=== PATIENT | male | born 1950 | race Caucasian/White ===

== ENCOUNTER 2017-10-14 09:29 | Inpatient (IN) | payer OTHER ==
[2017-10-14] MEDS: IBUPROFEN 600 MG TAB PO (10:38)
[2017-10-14] MEDS: METHYLPREDNISOLONE 125 MG INJ IV ×2 (10:38→21:34)
[2017-10-14] MEDS: SODIUM CHLORIDE 0.9% 1L BAG IV* (10:39)
[2017-10-14] MEDS: LEVOFLOXACIN 750MG/D5W (PMX) 150 ML IVPB (10:45)
[2017-10-14] MEDS: ALBUTEROL 0.5% (NEB) 2.5 MG/0.5 ML AMP INH (10:57)
[2017-10-14 11:05] LABS: ADD MAN DIFF? NO
[2017-10-14 11:07] LABS: BASOPHILS % 0.2 % (0.0-2.0); EOSINOPHILS % 0.4 % (0.0-7.0); HEMOGLOBIN 12.7 g/dl (14.0-18.0); LYMPHOCYTES # 0.8 10^3/ul (0.8-2.9); LYMPHOCYTES % 16.6 % (15.0-51.0); MEAN CORPUSCULAR HEMOGLOBIN 28.6 pg (29.0-33.0); MEAN CORPUSCULAR HGB CONC 32.6 g/dl (32.0-37.0); MEAN CORPUSCULAR VOLUME 87.8 fl (82.0-101.0); MEAN PLATELET VOLUME 10.6 fl (7.4-10.4); MONOCYTE # 0.6 10^3/ul (0.3-0.9); MONOCYTES % 11.9 % (0.0-11.0); NEUTROPHIL # 3.3 10^3/ul (1.6-7.5); NEUTROPHILS % 70.5 % (39.0-77.0); PLATELET COUNT 163 10^3/UL (140-415); RED BLOOD COUNT 4.44 10^6/ul (4.70-6.10); RED CELL DISTRIBUTION WIDTH 16.5 % (11.5-14.5)
[2017-10-14 11:07] LABS: WHITE BLOOD COUNT 4.6 10^3/ul (4.8-10.8)
[2017-10-14 11:35] LABS: ALANINE AMINOTRANSFERASE 34 IU/L (13-69); ALBUMIN 3.6 g/dl (3.3-4.9); ALKALINE PHOSPHATASE 69 IU/L (42-121); ANION GAP 11 (8-16); ASPARTATE AMINO TRANSFERASE 34 IU/L (15-46); BLOOD UREA NITROGEN 15 mg/dl (7-20); CALCIUM 8.4 mg/dl (8.4-10.2); CARBON DIOXIDE 32 mmol/L (21-31); CHLORIDE 96 mmol/L (97-110); CREATININE 1.03 mg/dl (0.61-1.24); GLUCOSE 115 mg/dl (70-220); LIPASE 332 U/L (23-300); POTASSIUM 4.8 mmol/L (3.5-5.1); SODIUM 134 mmol/L (135-144); TOTAL PROTEIN 7.6 g/dl (6.1-8.1)
[2017-10-14 11:45] LABS: TROPONIN-I < 0.012 ng/ml (0.00-0.12)
[2017-10-14 11:53] LABS: LACTIC ACID 1.4 mmol/L (0.5-2.0)
[2017-10-14 12:03] LABS: INR 0.88; PT RATIO 0.9
[2017-10-14 12:12] LABS: PARTIAL THROMBOPLASTIN TIME 31.6 Sec (25.0-35.0)
[2017-10-14] MEDS: VANCOMYCIN 1 GM (PMX) 250 ML IVPB (12:15)
[2017-10-14 12:28] LABS: AADO2 Arterial 391.4 mmHg (7.0-24.0); Allen Test ACCEPTAB; Arterial Base Excess -0.7 mmol/L (-3.0-3); Arterial Blood Gas Oxygen Sat 98.6 mmHG (95.0-98.0); Arterial COHb 0.3 % (0.0-3.0); Arterial Fraction of Oxyhgb 97.9 % (93.0-99.0); Arterial HCO3 25.4 mmol/L (22.0-26.0); Arterial MetHb 0.4 % (0.0-1.5); Arterial Total Hemglobin 13.7 g/dl (12.0-18.0); Arterial pCO2 47.3 mmhg (35-45); MODE MASK - SIMPLE; Site Right Radial
[2017-10-14] MEDS: ACYCLOVIR 500 MG in SOD CHLORIDE 0.9% 100 ML IVPB (15:14)
[2017-10-14] MEDS ORDERED: NITROGLYCERIN (SL) 0.4 MG TAB SL (15:30)
[2017-10-14] MEDS ORDERED: BISACODYL 10 MG SUPP PR (15:30)
[2017-10-14] MEDS ORDERED: DOCUSATE SODIUM 100 MG CAP PO (15:30)
[2017-10-14] MEDS ORDERED: NACL 0.9% 3 ML SYG IV (15:30)
[2017-10-14] MEDS ORDERED: LORAZEPAM 1 MG TAB PO (15:30)
[2017-10-14] MEDS ORDERED: ONDANSETRON 4 MG INJ IV (15:30)
[2017-10-14] MEDS ORDERED: ACETAMINOPHEN 325 MG TAB PO (15:30)
[2017-10-14] MEDS ORDERED: MAGNESIUM HYDROXIDE 30ML CUP PO (15:30)
[2017-10-14] MEDS ORDERED: ALBUTEROL/IPRATROPIUM (NEB) 3 ML AMP HHN (16:00)
[2017-10-14] MEDS: ALBUTEROL/IPRATROPIUM (NEB) 3 ML AMP HHN ×2 (16:00→23:31)
[2017-10-14] MEDS ORDERED: GLUCAGON 1 MG INJ IM (16:30)
[2017-10-14] MEDS ORDERED: GLUCOSE GEL 15 GRAM TUBE BUCCAL (16:30)
[2017-10-14] MEDS ORDERED: GLUCOSE GEL 15 GRAM TUBE PO ×2 (16:30)
[2017-10-14] MEDS ORDERED: DEXTROSE 50% 50 ML SYRINGE IV ×2 (16:30)
[2017-10-14] MEDS: OSELTAMIVIR 75 MG CAP PO ×2 (17:23→21:02)
[2017-10-14] MEDS: INSULIN ASPART [NOVOLOG] 3 ML PEN SC ×2 (17:29→21:06)
[2017-10-14 18:33] LABS: LACTIC ACID 1.7 mmol/L (0.5-2.0)
[2017-10-14 20:01] LABS: LACTIC ACID 1.8 mmol/L (0.5-2.0)
[2017-10-14] MEDS ORDERED: NON-FORMULARY/PATIENT OWN MED (Simvastatin 20 MG) PO (21:00)
[2017-10-14] MEDS: ATORVASTATIN 10 MG TAB PO (21:02)
[2017-10-14] MEDS: GABAPENTIN 300 MG CAP PO (21:02)
[2017-10-15] MEDS: ACCUCHECK AT 2AM (Patients on SS coverage) XX (02:00)
[2017-10-15] MEDS: PANTOPRAZOLE (EC) 40 MG TAB PO (05:59)
[2017-10-15] MEDS: METHYLPREDNISOLONE 125 MG INJ IV ×3 (05:59→21:39)
[2017-10-15 07:45] LABS: ADD MAN DIFF? NO
[2017-10-15 07:49] LABS: HEMATOCRIT 39.5 % (42.0-52.0); HEMOGLOBIN 12.4 g/dl (14.0-18.0); LYMPHOCYTES # 0.7 10^3/ul (0.8-2.9); LYMPHOCYTES % 27.6 % (15.0-51.0); MEAN CORPUSCULAR HEMOGLOBIN 27.7 pg (29.0-33.0); MEAN CORPUSCULAR HGB CONC 31.4 g/dl (32.0-37.0); MEAN CORPUSCULAR VOLUME 88.4 fl (82.0-101.0); MEAN PLATELET VOLUME 10.5 fl (7.4-10.4); MONOCYTE # 0.2 10^3/ul (0.3-0.9); MONOCYTES % 8.7 % (0.0-11.0); NEUTROPHIL # 1.6 10^3/ul (1.6-7.5); NEUTROPHILS % 63.3 % (39.0-77.0); PLATELET COUNT 159 10^3/UL (140-415); RED BLOOD COUNT 4.47 10^6/ul (4.70-6.10); RED CELL DISTRIBUTION WIDTH 16.6 % (11.5-14.5)
[2017-10-15 07:49] LABS: WHITE BLOOD COUNT 2.5 10^3/ul (4.8-10.8)
[2017-10-15] MEDS: ALBUTEROL/IPRATROPIUM (NEB) 3 ML AMP HHN ×3 (07:56→23:53)
[2017-10-15 08:10] LABS: ALBUMIN 3.4 g/dl (3.3-4.9); ANION GAP 13 (8-16); CALCIUM 9.2 mg/dl (8.4-10.2); CARBON DIOXIDE 31 mmol/L (21-31); CHLORIDE 99 mmol/L (97-110); GLUCOSE 163 mg/dl (70-220); POTASSIUM 5.5 mmol/L (3.5-5.1); SODIUM 137 mmol/L (135-144); TOTAL PROTEIN 7.6 g/dl (6.1-8.1)
[2017-10-15 08:16] LABS: HEMOGLOBIN A1C 6.1 % (0-5.9)
[2017-10-15 08:21] LABS: MAGNESIUM 1.7 mg/dl (1.7-2.5)
[2017-10-15] MEDS: OSELTAMIVIR 75 MG CAP PO ×2 (09:00→21:39)
[2017-10-15] MEDS: metFORMIN 500 MG TAB PO (09:00)
[2017-10-15] MEDS: INSULIN ASPART [NOVOLOG] 3 ML PEN SC ×4 (09:01→21:00)
[2017-10-15] MEDS: LOSARTAN 50 MG TAB PO (09:02)
[2017-10-15] MEDS: GABAPENTIN 300 MG CAP PO ×2 (09:02→21:39)
[2017-10-15 09:04] LABS: ALANINE AMINOTRANSFERASE 29 IU/L (13-69); ALKALINE PHOSPHATASE 64 IU/L (42-121); ASPARTATE AMINO TRANSFERASE 31 IU/L (15-46); BLOOD UREA NITROGEN 15 mg/dl (7-20); CREATININE 0.92 mg/dl (0.61-1.24)
[2017-10-15] MEDS: ENOXAPARIN 40 MG/0.4 ML SYG SC (09:04)
[2017-10-15] MEDS: INFLUENZA VIRUS VACCINE 0.5 ML SYG IM* (12:30)
[2017-10-15] MEDS: LEVOFLOXACIN 750MG/D5W (PMX) 150 ML IVPB (12:31)
[2017-10-15] MEDS: ATORVASTATIN 10 MG TAB PO (21:39)
[2017-10-16] MEDS: ACCUCHECK AT 2AM (Patients on SS coverage) XX (02:00)
[2017-10-16] MEDS: PANTOPRAZOLE (EC) 40 MG TAB PO (06:19)
[2017-10-16] MEDS: ALBUTEROL/IPRATROPIUM (NEB) 3 ML AMP HHN ×2 (07:31→16:00)
[2017-10-16] MEDS: INSULIN ASPART [NOVOLOG] 3 ML PEN SC ×2 (08:00→12:04)
[2017-10-16] MEDS: metFORMIN 500 MG TAB PO (08:13)
[2017-10-16] MEDS: GABAPENTIN 300 MG CAP PO (08:20)
[2017-10-16] MEDS: OSELTAMIVIR 75 MG CAP PO (08:20)
[2017-10-16] MEDS: ENOXAPARIN 40 MG/0.4 ML SYG SC (08:23)
[2017-10-16] MEDS: METHYLPREDNISOLONE 40 MG INJ IV (08:29)
[2017-10-16] MEDS: LOSARTAN 50 MG TAB PO (08:32)
[2017-10-16] MEDS: LEVOFLOXACIN 750MG/D5W (PMX) 150 ML IVPB (11:32)
[2017-10-16 12:08] LABS: ADD MAN DIFF? NO
[2017-10-16 12:14] LABS: BASOPHILS % 0.1 % (0.0-2.0); HEMATOCRIT 39.8 % (42.0-52.0); HEMOGLOBIN 12.5 g/dl (14.0-18.0); LYMPHOCYTES # 0.8 10^3/ul (0.8-2.9); MEAN CORPUSCULAR HEMOGLOBIN 28.2 pg (29.0-33.0); MEAN CORPUSCULAR HGB CONC 31.4 g/dl (32.0-37.0); MEAN CORPUSCULAR VOLUME 89.6 fl (82.0-101.0); MONOCYTE # 0.5 10^3/ul (0.3-0.9); MONOCYTES % 5.6 % (0.0-11.0); PLATELET COUNT 179 10^3/UL (140-415); RED BLOOD COUNT 4.44 10^6/ul (4.70-6.10); RED CELL DISTRIBUTION WIDTH 16.3 % (11.5-14.5)
[2017-10-16 12:14] LABS: WHITE BLOOD COUNT 9.3 10^3/ul (4.8-10.8)
[2017-10-16 12:46] LABS: ANION GAP 14 (8-16); BLOOD UREA NITROGEN 22 mg/dl (7-20); CALCIUM 8.9 mg/dl (8.4-10.2); CARBON DIOXIDE 33 mmol/L (21-31); CHLORIDE 98 mmol/L (97-110); CREATININE 1.02 mg/dl (0.61-1.24); GLUCOSE 164 mg/dl (70-220); POTASSIUM 5.1 mmol/L (3.5-5.1); SODIUM 140 mmol/L (135-144)
== END 2017-10-16 18:30 | disposition home health service (06) | DRG 189 ==
LOC: E/R 09:29 → MS4 11:43
DX: J96.11 Chronic respiratory failure with hypoxia (principal); E11.40 Type 2 diabetes mellitus with diabetic neuropathy, unspecified; J84.10 Pulmonary fibrosis, unspecified; E44.1 Mild protein-calorie malnutrition; R06.03 Acute respiratory distress; J11.1 Influenza due to unidentified influenza virus with other respiratory manifestations; Z99.81 Dependence on supplemental oxygen; I10 Essential (primary) hypertension; E78.5 Hyperlipidemia, unspecified; Z79.52 Long term (current) use of systemic steroids; Z68.25 Body mass index [BMI] 25.0-25.9, adult
CPT/HCPCS: 36600; 71045; 71250; 80048; 80053; 82803; 82962; 83036; 83605; 83690; 83735; 84100; 84484; 85025; 85610; 85730; 87040; 87400; 90686; 93005; 94640; 96374; 96375; 99285-25

== ENCOUNTER 2018-11-13 15:02 | Inpatient (IN) | payer OTHER ==
[2018-11-13] MEDS: SODIUM CHLORIDE 0.9% 1L BAG IV* (16:09)
[2018-11-13 16:20] LABS: ADD MAN DIFF? NO
[2018-11-13] MEDS: METHYLPREDNISOLONE 125 MG INJ IV (16:20)
[2018-11-13] MEDS: ACETAMINOPHEN 325 MG TAB PO (16:20)
[2018-11-13] MEDS: CEFTRIAXONE 1 GM/50 ML (PMX) 50 ML IVPB (16:20)
[2018-11-13 16:26] LABS: ABNORMAL IP MESSAGE 1; HEMATOCRIT 43.7 % (42.0-52.0); HEMOGLOBIN 13.6 g/dl (14.0-18.0); MEAN CORPUSCULAR HEMOGLOBIN 28.5 pg (29.0-33.0); MEAN CORPUSCULAR HGB CONC 31.1 g/dl (32.0-37.0); MEAN CORPUSCULAR VOLUME 91.6 fl (82.0-101.0); MEAN PLATELET VOLUME 11.3 fl (7.4-10.4); PLATELET COUNT 182 10^3/UL (140-415); POSITIVE DIFF @See below; RED BLOOD COUNT 4.77 10^6/ul (4.70-6.10); RED CELL DISTRIBUTION WIDTH 14.9 % (11.5-14.5)
[2018-11-13 16:26] LABS: WHITE BLOOD COUNT 28.7 10^3/ul (4.8-10.8)
[2018-11-13 16:37] LABS: ADD UMIC YES; UR ASCORBIC ACID NEGATIVE (NEGATIVE); UR BACTERIA FEW /HPF (NONE SEEN); UR BILIRUBIN (Dip) NEGATIVE (NEGATIVE); UR BLOOD (Dip) 2+ mg/dL (NEGATIVE); UR CLARITY SLIGHTLY CLOUDY (CLEAR); UR COLOR YELLOW (YELLOW); UR GLUCOSE (Dip) NEGATIVE (NEGATIVE); UR KETONES (Dip) NEGATIVE (NEGATIVE); UR LEUKOCYTE ESTERASE (Dip) NEGATIVE Leu/ul (NEGATIVE); UR NITRITE (Dip) NEGATIVE (NEGATIVE); UR RBC 47 /HPF (0-5); UR SPECIFIC GRAVITY (Dip) 1.025 (1.003-1.030); UR TOTAL PROTEIN (Dip) 2+ mg/dl (NEGATIVE); UR UROBILINOGEN (Dip) 1+ mg/dL (NEGATIVE); UR WBC 7 /HPF (0-5)
[2018-11-13 16:40] LABS: PATH REVIEW? YES
[2018-11-13 16:42] LABS: ALANINE AMINOTRANSFERASE 12 IU/L (13-69); ALBUMIN 3.8 g/dl (3.3-4.9); ALBUMIN/GLOBULIN RATIO 0.86; ALKALINE PHOSPHATASE 80 IU/L (42-121); ANION GAP 9 (5-13); ASPARTATE AMINO TRANSFERASE 27 IU/L (15-46); BILIRUBIN,INDIRECT 0.6 mg/dl (0-1.1); BILIRUBIN,TOTAL 0.6 mg/dl (0.2-1.3); BLOOD UREA NITROGEN 24 mg/dl (7-20); CALCIUM 9.3 mg/dl (8.4-10.2); CARBON DIOXIDE 32 mmol/L (21-31); CHLORIDE 95 mmol/L (97-110); Estimated GFR > 60 mL/min (>60); GLUCOSE 121 mg/dl (70-220); POTASSIUM 5.2 mmol/L (3.5-5.1); SODIUM 136 mmol/L (135-144); TOTAL PROTEIN 8.2 g/dl (6.1-8.1)
[2018-11-13 16:44] LABS: INR 0.97
[2018-11-13 16:45] LABS: PARTIAL THROMBOPLASTIN TIME 27.3 Sec (23.0-35.0)
[2018-11-13] MEDS: AZITHROMYCIN 500MG/NS (PMX) 250 ML IV (16:50)
[2018-11-13 16:53] LABS: TROPONIN-I < 0.012 ng/ml (0.000-0.120)
[2018-11-13] MEDS: IPRATROPIUM (NEB) 0.5 MG/2.5 ML AMP INH (16:55)
[2018-11-13] MEDS: ALBUTEROL 0.5% (NEB) 2.5 MG/0.5 ML AMP INH ×2 (16:55→18:19)
[2018-11-13 17:10] LABS: BAND NEUTROPHILS #M 6.8 10^3/ul (0.0-0.6); BAND NEUTROPHILS % (M) 24 % (0-4); LYMPHOCYTES #M 0.8 10^3/ul (0.8-2.9); LYMPHOCYTES % (M) 3 % (15-51); MONOCYTE #M 1.1 10^3/ul (0.3-0.9); MONOCYTES % (M) 4 % (0-11); PLATELET ESTIMATE NORMAL; SEG NEUT #M 21.8 10^3/ul (1.6-7.5); SEGMENTED NEUTROPHILS (M) % 69 % (39-77); SMUDGE%M 27 % (0-0)
[2018-11-13] MEDS ORDERED: ONDANSETRON 4 MG INJ IV ×2 (20:00→20:30)
[2018-11-13] MEDS ORDERED: ACETAMINOPHEN 325 MG TAB PO ×2 (20:00→20:30)
[2018-11-13] MEDS ORDERED: LORAZEPAM 1 MG TAB PO (20:30)
[2018-11-13] MEDS ORDERED: NACL 0.9% 3 ML SYG IV (20:30)
[2018-11-13] MEDS ORDERED: VANCOMYCIN IV PER PHARMACY XX (20:30)
[2018-11-13] MEDS ORDERED: DOCUSATE SODIUM 100 MG CAP PO (20:30)
[2018-11-13 20:47] LABS: LACTIC ACID 5.1 mmol/L (0.5-2.0)
[2018-11-13] MEDS ORDERED: GLUCOSE GEL 15 GRAM TUBE BUCCAL (22:00)
[2018-11-13] MEDS ORDERED: DEXTROSE 50% 50 ML SYRINGE IV ×2 (22:00)
[2018-11-13] MEDS ORDERED: GLUCAGON 1 MG INJ IM (22:00)
[2018-11-13] MEDS ORDERED: GLUCOSE GEL 15 GRAM TUBE PO ×2 (22:00)
[2018-11-13] MEDS: PIPER-TAZO 3.375 GM IV (PMX) 100 ML IVPB (22:24)
[2018-11-13] MEDS: FAMOTIDINE 20 MG TAB PO (22:24)
[2018-11-13] MEDS: ACCU-CHEK XX (22:24)
[2018-11-13] MEDS: SOD CHLORIDE 0.9% 1,000 ML IV (22:24)
[2018-11-14] MEDS: VANCOMYCIN HCL 1.5 GM in SOD CHLORIDE 0.9% 250 ML IVPB (00:18)
[2018-11-14 06:07] LABS: WHITE BLOOD COUNT 23.6 10^3/ul (4.8-10.8)
[2018-11-14 06:07] LABS: ABNORMAL IP MESSAGE 1; HEMATOCRIT 37.4 % (42.0-52.0); HEMOGLOBIN 11.6 g/dl (14.0-18.0); MEAN CORPUSCULAR HEMOGLOBIN 28.6 pg (29.0-33.0); MEAN CORPUSCULAR VOLUME 92.3 fl (82.0-101.0); MEAN PLATELET VOLUME 11.4 fl (7.4-10.4); PLATELET COUNT 179 10^3/UL (140-415); POSITIVE DIFF @See below; RED BLOOD COUNT 4.05 10^6/ul (4.70-6.10); RED CELL DISTRIBUTION WIDTH 15.5 % (11.5-14.5)
[2018-11-14 06:12] LABS: ADD MAN DIFF? YES
[2018-11-14 06:23] LABS: HEMOGLOBIN A1C 5.7 % (0-5.9)
[2018-11-14] MEDS: PIPER-TAZO 3.375 GM IV (PMX) 100 ML IVPB ×3 (06:26→21:21)
[2018-11-14 06:37] LABS: ANION GAP 8 (5-13); BLOOD UREA NITROGEN 21 mg/dl (7-20); CALCIUM 9.1 mg/dl (8.4-10.2); CARBON DIOXIDE 29 mmol/L (21-31); CHLORIDE 104 mmol/L (97-110); Estimated GFR > 60 mL/min (>60); GLUCOSE 199 mg/dl (70-220); POTASSIUM 4.8 mmol/L (3.5-5.1); SODIUM 141 mmol/L (135-144)
[2018-11-14] MEDS: ACCU-CHEK XX ×4 (07:00→21:00)
[2018-11-14 07:45] LABS: ANISOCYTOSIS 1+ (0-0); BAND NEUTROPHILS #M 3.5 10^3/ul (0.0-0.6); BAND NEUTROPHILS % (M) 15 % (0-4); LYMPHOCYTES #M 0.4 10^3/ul (0.8-2.9); LYMPHOCYTES % (M) 2 % (15-51); MONOCYTE #M 0.4 10^3/ul (0.3-0.9); MONOCYTES % (M) 2 % (0-11); PLATELET ESTIMATE NORMAL; POIKILOCYTOSIS 1+ (0-0); REACTIVE LYMPHOCYTES #M 0.4 10^3/ul (0.0-0.0); REACTIVE LYMPHOCYTES% (M) 2 % (0-0); SEG NEUT #M 19.5 10^3/ul (1.6-7.5); SEGMENTED NEUTROPHILS (M) % 79 % (39-77); SMUDGE%M 22 % (0-0); TARGET CELLS 1+ (0-0)
[2018-11-14] MEDS: LOSARTAN 50 MG TAB PO (08:37)
[2018-11-14] MEDS: predniSONE 5 MG TAB PO (08:37)
[2018-11-14] MEDS: FAMOTIDINE 20 MG TAB PO ×2 (08:37→21:12)
[2018-11-14] MEDS: SOD CHLORIDE 0.9% 1,000 ML IV ×2 (08:37→23:25)
[2018-11-14] MEDS: GABAPENTIN 300 MG CAP PO (08:37)
[2018-11-14] MEDS: metFORMIN 500 MG TAB PO ×2 (08:38→17:13)
[2018-11-14] MEDS: VANCOMYCIN 1 GM 250 ML IVPB (11:22)
[2018-11-14] MEDS: METHYLPREDNISOLONE 40 MG INJ IV ×2 (15:37→17:13)
[2018-11-15] MEDS: METHYLPREDNISOLONE 40 MG INJ IV ×3 (00:50→12:00)
[2018-11-15] MEDS: VANCOMYCIN 1 GM 250 ML IVPB ×2 (00:51→12:00)
[2018-11-15] MEDS: ZOLPIDEM 5 MG TAB PO (01:10)
[2018-11-15] MEDS: PIPER-TAZO 3.375 GM IV (PMX) 100 ML IVPB (06:35)
[2018-11-15] MEDS: ACCU-CHEK XX ×2 (06:47→11:30)
[2018-11-15] MEDS: metFORMIN 500 MG TAB PO (07:49)
[2018-11-15] MEDS: GABAPENTIN 300 MG CAP PO (07:57)
[2018-11-15] MEDS: LOSARTAN 50 MG TAB PO (07:57)
[2018-11-15] MEDS: FAMOTIDINE 20 MG TAB PO (07:58)
[2018-11-15 11:39] LABS: VANCOMYCIN,TROUGH 12.4 ug/ml (10.0-20.0)
[2018-11-15] MEDS: SOD CHLORIDE 0.9% 1,000 ML IV (12:07)
[2018-11-15] MEDS: LISINOPRIL 20 MG TAB PO (12:25)
== END 2018-11-15 13:17 | disposition home health service (06) | DRG 193 ==
LOC: E/R 15:02 → 6WM 20:00
DX: J18.9 Pneumonia, unspecified organism (principal); J96.21 Acute and chronic respiratory failure with hypoxia; I50.30 Unspecified diastolic (congestive) heart failure; I11.0 Hypertensive heart disease with heart failure; E11.9 Type 2 diabetes mellitus without complications; I48.2 Chronic atrial fibrillation; J84.112 Idiopathic pulmonary fibrosis; E78.5 Hyperlipidemia, unspecified; Z99.81 Dependence on supplemental oxygen; Z79.84 Long term (current) use of oral hypoglycemic drugs; Z79.52 Long term (current) use of systemic steroids; Z87.891 Personal history of nicotine dependence
CPT/HCPCS: 36415; 71045; 80048; 80053; 80202; 81001; 82962; 83036; 83605; 84484; 85025; 85610; 85730; 87040; 87086; 87400; 93005; 94644; 94645; 96365; 96367; 96375; 99291-25